=== PATIENT | male | born 1970 | race Two or more races ===

== ENCOUNTER 2019-11-01 09:05 | Emergency (ER) | payer SELFPAY ==
[~2019-11-01] VITALS: Ht 167.6 cm; Wt 81.8 kg
[2019-11-01 09:30] LABS: BILIRUBIN,URINE NEGATIVE (NEG); CLARITY,URINE CLOUDY; COLOR,URINE YELLOW; NITRITE,URINE NEGATIVE (NEG); PROTEIN,URINE NEGATIVE (NEG-TRACE); UROBILINOGEN,URINE 0.2 mg/dL (0.2 mg/dL)
[2019-11-01 09:37] LABS: AMORPHOUS SEDIMENT,UR PRESENT /HPF; BACTERIA,URINE 0 /HPF (0-FEW); RBC,URINE RARE /HPF (0-2); SQUAMOUS EPITHELIAL CELL,UR OCC /LPF; WBC,URINE OCC /HPF (0-4)
[2019-11-01] MEDS ORDERED: IV NORMAL SALINE 1000ML BAG 1,000 ML IV ONE (09:45)
[2019-11-01] MEDS ORDERED: KETOROLAC 15 MG/ML VIAL. IVP ONE (10:00)
[2019-11-01] MEDS ORDERED: fentaNYL PF VIAL 100 MCG/2 ML VIAL IV ONE (10:00)
[2019-11-01] MEDS ORDERED: METOCLOPRAMIDE HCL 10 MG/2 ML VIAL. IVP ONE (10:00)
[2019-11-01 10:05] LABS: BASO % 0 % (0-3); EOS % 0 % (0-3); HEMATOCRIT 43.1 % (39.0-53.0); HEMOGLOBIN 14.8 g/dL (13.0-17.5); LYMPH # 1.4 x10^3/uL (1.0-4.8); LYMPH % 27 % (24-48); MEAN CORPUSCULAR HEMOGLOBIN 29 pg (25-35); MEAN CORPUSCULAR HGB CONC 34 g/dL (31-37); MEAN CORPUSCULAR VOLUME 85 fL (79-100); MONO # 0.4 x10^3/uL (0.0-1.1); MONO % 7 % (0-9); NEUT # 3.4 x10^3/uL (1.8-7.7); NEUT % 65 % (31-73); PLATELET COUNT 220 x10^3/uL (140-400); RED BLOOD COUNT 5.08 x10^6/uL (4.30-5.70); RED CELL DISTRIBUTION WIDTH 13.9 % (11.5-14.5); WHITE BLOOD COUNT 5.2 x10^3/uL (4.0-11.0)
--- NOTE | 2019-11-01 10:07 | PHYS DOC ---
General Adult EDM: Chief Complaint: ABDOMINAL PAIN HPI: HPI: Mr. Enriquez is a 49-year-old male, with a 3-hour history of sudden onset right lower quadrant pain. Patient was voiding this morning at approximately 6 AM when he developed a sudden onset right lower quadrant pain that radiates to his groin. Patient describes his pain as sharp colicky and 10 out of 10. Patient reports dysuria. Patient denies any dimitris hematuria. Patient denies any fevers or chills. patient denies nausea, vomiting, and diarrhea. Patient reports that his last bowel movement was at 6 AM this morning, it was normal in consistency and volume. Patient denies eating anything abnormal. Past medical history: None Past surgical history: None Meds: Flomax Social history: Denies tobacco alcohol or illicit drugs Patient is a beaver Armenian speaker, blue phone translation was used for obtaining history. Review of Systems: Review of Systems: Constitutional: Denies fever or chills Eyes: Denies redness or eye pain HENT: Denies nasal congestion or sore throat Respiratory: Denies cough or shortness of breath Cardiovascular: Denies chest pain or palpitations GI: Denies abdominal pain, nausea, or vomiting : Denies dysuria or hematuria Musculoskeletal: Denies back pain or joint pain Integument: Denies rash or skin lesions Neurologic: Denies headache, focal weakness or sensory changes Complete systems were reviewed and found to be within normal limits, except as documented in this note. Heart Score: Risk Factors: Risk Factors: DM, Current or recent (<one month) smoker, HTN, HLP, family history of CAD, obesity. Risk Scores: Score 0 - 3: 2.5% MACE over next 6 weeks - Discharge Home Score 4 - 6: 20.3% MACE over next 6 weeks - Admit for Clinical Observation Score 7 - 10: 72.7% MACE over next 6 weeks - Early Invasive Strategies Current Medications: Current Medications Medications (Trade) Dose Ordered Sig/[facility] Start Time Stop Time Status Last Admin Dose Admin Fentanyl Citrate (Fentanyl 2ml Vial) 50 mcg 1X ONCE 11/01/19 10:00 11/01/19 10:01 UNV Ketorolac Tromethamine (Toradol 15mg Vial) 15 mg 1X ONCE 11/01/19 10:00 11/01/19 10:01 UNV Metoclopramide HCl (Reglan Vial) 10 mg 1X ONCE 11/01/19 10:00 11/01/19 10:01 UNV Sodium Chloride 1,000 ml @ 1,000 mls/hr 1X ONCE 11/01/19 09:45 11/01/19 10:44 UNV Physical Exam: PE: Constitutional: Well developed, well nourished. Patient appears in mild acute distress holding right lower quadrant. HENT: Normocephalic, atraumatic. Cranial nerves II through XII grossly intact bilaterally. Eyes: PERRL, EOMI, conjunctiva normal, no discharge. Tears noted, believed to be due to pain. Neck: Normal range of motion, no tenderness, supple. Lungs & Thorax: Bilateral breath sounds clear to auscultation, no wheezing Abdomen: Rigid abdomen. Tenderness to palpation in the right lower quadrant. Negative Rovsing sign. Positive rebound tenderness only over the right lower quad. Negative straight leg raise test. Heart: Regular rate and rhythm no murmurs. S1 and S2 are normal. S3 and S4 absent. Skin: Warm, dry, no erythema, no rash. Back: No tenderness, no CVA tenderness. Extremities: No tenderness, ROM intact, no edema. 2+4 pulses in all 4 extremities. Neurologic: Alert and oriented X 3, normal motor function, normal sensory function, no focal deficits noted. Psychologic: Affect normal, judgment normal. Current Patient Data: Labs: Laboratory Tests Test 11/01/19 09:15 Urine Collection Type Void Urine Color Yellow Urine Clarity Cloudy Urine pH 8.0 (<5.0-8.0) Urine Specific [place] 1.025 (1.000-1.030) Urine Protein Negative mg/dL (NEG-TRACE) Urine Glucose (UA) Negative mg/dL (NEG) Urine Ketones (Stick) Negative mg/dL (NEG) Urine Blood Negative (NEG) Urine Nitrite Negative (NEG) Urine Bilirubin Negative (NEG) Urine Urobilinogen Dipstick 0.2 mg/dL (0.2 mg/dL) Urine Leukocyte Esterase Negative (NEG) Urine RBC Rare /HPF (0-2) Urine WBC Occ /HPF (0-4) Urine Squamous Epithelial Cells Occ /LPF Urine Amorphous Sediment Present /HPF Urine Bacteria 0 /HPF (0-FEW) EKG: EKG: [] Radiology/Procedures: Radiology/Procedures: PROCEDURE: CT ABDOMEN PELVIS WO CONTRAST CT Abdomen and Pelvis without contrast History: Right flank pain, right lower quadrant pain Technique: Noncontrast CT imaging was performed of the abdomen and pelvis. Multiplanar images are reviewed. Exposure: One or more of the following individualized dose reduction techniques were utilized for this examination: 1. Automated exposure control 2. Adjustment of the mA and/or kV according to patient size 3. Use of iterative reconstruction technique. Comparison: None Findings: There is some motion degradation. There is mild right hydroureteronephrosis. There is a 4 mm calculus at the right ureterovesical junction protruding into the urinary bladder lumen. There is mild strandy change of the right perinephric fat. There is a 2 mm calculus of the inferior right kidney, possibly an adjacent punctate calculus also present. There is no left hydronephrosis or renal calculus. Accurate evaluation of abdominal visceral organs is limited without intravenous contrast. There is no obvious abnormality of the spleen, liver, or pancreas. There is mild hepatic steatosis. Gallbladder is present without obvious intraluminal abnormality by CT. There is no adrenal nodularity. Accurate evaluation of bowel is limited without oral contrast. There is no significant free air, free fluid, bowel dilatation. Appendix caliber is upper limits of normal at 0.6 cm although no adjacent inflammatory change. Impression: 1. There is mild right hydroureteronephrosis due to 4 mm calculus at the right ureterovesical junction. There is mild strandy change and nonorganized fluid density of the right perinephric fat as may be seen with component of forniceal rupture. There are a couple of very small inferior right renal calculi. 2. There is mild hepatic steatosis. Electronically signed by: Desmond Elaine MD (11/01/2019 11:17 AM) [id number] Course & Med Decision Making: Course & Med Decision Making Pertinent Labs and Imaging studies reviewed. (See chart for details) 49-year-old male presenting with 3-hour history of acute right lower quadrant pain. DD: Nephrolithiasis or acute appendicitis. Sudden onset pain most consistent with nephrolithiasis, UA showed few RBCs. Will order CT abdomen to confirm diagnosis. -CT abdomen Dragon Disclaimer: Dragon Disclaimer: This electronic medical record was generated, in whole or in part, using a voice recognition dictation system. Departure Departure Impression: Primary Impression: Kidney stone Disposition: 01 HOME, SELF-CARE Condition: STABLE Referrals: NO PCP (PCP) Patient Instructions: Diet for Kidney Stones, Kidney Stones, Fugw-[id number] Scripts Hydrocodone/Apap 5-325 (NORCO 5-325 TABLET) 1 Each Tablet 0.5-1 TAB PO PRN Q6HRS PRN for PAIN, #10 TAB 0 Refills Prov: ZOLTAN CASTREJON DO 11/01/19 Ondansetron (ONDANSETRON ODT) 4 Mg Tab.rapdis 1 TAB PO PRN Q6-8HRS PRN for NAUSEA, #16 TAB Prov: ZOLTAN CASTREJON DO 11/01/19 Justicifation of Admission Dx: Justifications for Admission: Justification of Admission Dx: N/A ZOLTAN CASTREJON DO Nov 01, 2019 10:07
[2019-11-01 10:17] LABS: PROTHROMBIN TIME PATIENT 12.4 SEC (11.7-14.0)
[2019-11-01 10:21] LABS: CALCIUM 8.1 mg/dL (8.5-10.1); GFR 80.1; POTASSIUM 4.3 mmol/L (3.5-5.1)
[2019-11-01 10:27] LABS: ALBUMIN/GLOBULIN RATIO 1.1 (1.0-1.7); MAGNESIUM 2.1 mg/dL (1.8-2.4); TOTAL BILIRUBIN 0.4 mg/dL (0.2-1.0); TOTAL PROTEIN 7.7 g/dL (6.4-8.2)
--- NOTE | 2019-11-01 11:20 | RAD ---
CT Abdomen and Pelvis without contrast History: Right flank pain, right lower quadrant pain Technique: Noncontrast CT imaging was performed of the abdomen and pelvis. Multiplanar images are reviewed. Exposure: One or more of the following individualized dose reduction techniques were utilized for this examination: 1. Automated exposure control 2. Adjustment of the mA and/or kV according to patient size 3. Use of iterative reconstruction technique. Comparison: None Findings: There is some motion degradation. There is mild right hydroureteronephrosis. There is a 4 mm calculus at the right ureterovesical junction protruding into the urinary bladder lumen. There is mild strandy change of the right perinephric fat. There is a 2 mm calculus of the inferior right kidney, possibly an adjacent punctate calculus also present. There is no left hydronephrosis or renal calculus. Accurate evaluation of abdominal visceral organs is limited without intravenous contrast. There is no obvious abnormality of the spleen, liver, or pancreas. There is mild hepatic steatosis. Gallbladder is present without obvious intraluminal abnormality by CT. There is no adrenal nodularity. Accurate evaluation of bowel is limited without oral contrast. There is no significant free air, free fluid, bowel dilatation. Appendix caliber is upper limits of normal at 0.6 cm although no adjacent inflammatory change. Impression: 1. There is mild right hydroureteronephrosis due to 4 mm calculus at the right ureterovesical junction. There is mild strandy change and nonorganized fluid density of the right perinephric fat as may be seen with component of forniceal rupture. There are a couple of very small inferior right renal calculi. 2. There is mild hepatic steatosis. Electronically signed by: Desmond Elaine MD (11/01/2019 11:17 AM) [id number]
[2019-11-01] MEDS ORDERED: HYDR-3164 PO (11:40)
[2019-11-01] MEDS ORDERED: ONDA4TAB12 PO (11:40)
[2019-11-01 12:20] VITALS: BP 145/89
== END 2019-11-01 12:21 | disposition home or self-care (01) ==
LOC: ER 09:05
DX: N13.2 Hydronephrosis with renal and ureteral calculous obstruction (principal); R10.31 Right lower quadrant pain; R30.0 Dysuria
CPT/HCPCS: 36415; 74176; 80053; 81001; 83690; 83735; 85025; 85610; 85730; 96361; 96374; 96375; 99285; J1885; J2765; J3010; J7030